=== PATIENT | male | born 1995 | race American Indian/Alaskan Native ===

== ENCOUNTER 2021-05-25 17:57 | Emergency (ER) | payer SELFPAY ==
[2021-05-25 19:44] LABS: Amphetamine Screen,Urine Negative; Benzodiazepines Screen,Urine Negative; Cocaine Screen,Urine Negative; Methadone Screen,Urine Negative; Opiate Screen,Urine Negative
[2021-05-25 19:49] LABS: Bilirubin,Urine NEG (Negative); Blood,Urine SM (Negative); Color,Urine Yellow (Yellow); Mucus,Urine FEW /HPF; Protein,Urine <15 mg/dL mg/dL (Negative)
[2021-05-25 19:55] LABS: Cannabinoid Screen,Urine Positive
[2021-05-25 20:04] LABS: Basophils % (Auto) 0.3 % (0.0-1.8); Eosinophils % (Auto) 0.1 % (0.0-4.3); Hematocrit 47.4 % (35.5-45.6); Hemoglobin 16.1 gm/dl (11.8-15.2); Lymphocytes # (Auto) 1.8 K/mm3 (1.2-5.4); Lymphocytes % (Auto) 25.1 % (13.4-35.0); Mean Corpuscular HGB Conc 34 % (32-34); Mean Corpuscular Volume 93 fl (84-94); Monocytes # (Auto) 0.4 K/mm3 (0.0-0.8); Monocytes % (Auto) 5.6 % (0.0-7.3); Platelet Count 272 K/mm3 (140-440); Red Blood Count 5.08 M/mm3 (3.65-5.03); Red Cell Distribution Width 13.4 % (13.2-15.2)
[2021-05-25 20:17] LABS: BUN/Creatinine Ratio 9; Blood Urea Nitrogen 9 mg/dL (9-20); Calcium 9.9 mg/dL (8.4-10.2); Hemolysis Index 13
[2021-05-25] MEDS ORDERED: traZODone 50 MG TAB PO ONE (20:35)
--- NOTE | 2021-05-25 20:44 | Emergency Department Report ---
ED Psych HPI - General Chief Complaint: Psych Stated Complaint: DEPRESSION Time Seen by Provider: 05/25/21 20:12 Source: patient Mode of arrival: Ambulatory - History of Present Illness Initial Comments: Chief complaint: "My medicine is not working." HPI: History obtained from patient. History also obtained from mother Sonya Castle at [phone]. This is a 26-year-old male with history of bipolar disorder diagnosed in October at [facility]. He was discovered to be manic at that time. He had attempted to steal a car from the dealership. Instead of pressing charges, under the [employer] recommended hospitalization and medical care. He required inpatient psychiatric care at [place] at that time. Mother is concerned that he will return to that same state. She explains that he has been "in a very dark space". He told his mother that he did not want a living more. He also told his mother that he did not see any purpose for living. He does not endorse any plan to harm himself. Denies homicidal ideation or auditory hallucinations. He takes risperidone 2 mg twice daily. Mother states he has not taken his medication in 3 days. MD Complaint: suicidal ideation, feels depressed, other (Trouble sleeping despi te Benadryl and Advil PM) -: Gradual, week(s) (1 week) Associated Psychiatric Symptoms: depression, suicidal ideation History of same: Yes Quality: constant Worsens With: none Context: not taking psychiatric, significant life stressor (Recently lost his job) Associated Symptoms: denies other symptoms Treatments Prior to Arrival: none If Self Harm: admits thoughts of - Related Data Home Medications Medication Instructions Recorded Confirmed Last Taken risperiDONE [RisperDAL] 2 mg PO QDAY 05/26/21 05/26/21 05/25/21 Previous Rx's Medication Instructions Recorded Last Taken Type Divalproex Dr [DepaKOTE DR] 500 mg PO BID 30 Days #60 tablet 05/26/21 Unknown Rx risperiDONE [RisperDAL] 2 mg PO BID 30 Days #60 tablet 05/26/21 Unknown Rx Allergies Allergy/AdvReac Type Severity Reaction Status Date / Time No Known Allergies Allergy Unverified 05/25/21 19:28 ED Review of Systems ROS: Stated complaint: DEPRESSION Other details as noted in HPI Comment: All other systems reviewed and negative Constitutional: denies: fever, malaise Respiratory: denies: cough, shortness of breath Cardiovascular: denies: chest pain Gastrointestinal: denies: abdominal pain, nausea, vomiting Skin: denies: rash ED Past Medical Hx - Past Medical History Previous Medical History?: Yes Hx Psychiatric Treatment: Yes (Bipolar disorder) - Surgical History Past Surgical History?: No - Social History Smoking Status: Current Every Day Smoker Substance Use Type: Marijuana - Medications Home Medications: Home Medications Medication Instructions Recorded Confirmed Last Taken Type Divalproex Dr [DepaKOTE DR] 500 mg PO BID 30 Days #60 tablet 05/26/21 Unknown Rx risperiDONE [RisperDAL] 2 mg PO BID 30 Days #60 tablet 05/26/21 Unknown Rx risperiDONE [RisperDAL] 2 mg PO QDAY 05/26/21 05/26/21 05/25/21 History ED Physical Exam - General Limitations: No Limitations General appearance: alert, in no apparent distress, other (Pleasant, cooperative, slightly anxious, fidgety) - Head Head exam: Present: atraumatic, normocephalic - Eye Eye exam: Present: normal appearance - ENT ENT exam: Present: mucous membranes moist - Neck Neck exam: Present: normal inspection, full ROM - Respiratory Respiratory exam: Present: normal lung sounds bilaterally. Absent: respiratory distress, wheezes, rales, rhonchi - Cardiovascular Cardiovascular Exam: Present: regular rate, normal rhythm, normal heart sounds. Absent: systolic murmur, diastolic murmur, rubs, gallop - GI/Abdominal GI/Abdominal exam: Present: soft, normal bowel sounds. Absent: distended, tenderness, guarding, rebound - Rectal Rectal exam: Present: deferred - Extremities Exam Extremities exam: Present: normal inspection - Back Exam Back exam: Present: normal inspection - Neurological Exam Neurological exam: Present: alert, oriented X3 - Psychiatric Psychiatric exam: Present: depressed, anxious, flat affect, suicidal ideation - Skin Skin exam: Present: warm, dry, intact, normal color. Absent: rash ED Course Vital Signs 05/25/21 05/25/21 05/25/21 19:18 20:55 22:20 Temperature 98.9 F 98.3 F Pulse Rate 99 H 92 H Respiratory 16 18 16 Rate Blood Pressure 130/85 Blood Pressure 123/86 [Right] O2 Sat by Pulse 97 97 Oximetry 05/26/21 05/26/21 02:02 08:00 Temperature 98.2 F 98.6 F Pulse Rate 122 H 89 Respiratory 18 18 Rate Blood Pressure Blood Pressure 135/87 123/87 [Right] O2 Sat by Pulse 97 99 Oximetry ED Medical Decision Making - Lab Data Result diagrams: 05/25/21 19:47 05/25/21 19:47 Laboratory Results - last 24 hr 05/25/21 05/25/21 05/25/21 19:30 19:30 19:47 WBC RBC Hgb Hct MCV MCH MCHC RDW Plt Count Lymph % (Auto) Alcorn % (Auto) Eos % (Auto) Baso % (Auto) Lymph # (Auto) Alcorn # (Auto) Eos # (Auto) Baso # (Auto) Seg Neutrophils % Seg Neutrophils # Sodium Potassium Chloride Carbon Dioxide Anion Gap BUN Creatinine Estimated GFR BUN/Creatinine Ratio Glucose Calcium Urine Color Yellow Urine Turbidity Clear Urine pH 6.0 Ur Specific Jenkins 1.013 Urine Protein <15 mg/dl Urine Glucose (UA) Neg Urine Ketones Neg Urine Blood Sm Urine Nitrite Neg Urine Bilirubin Neg Urine Urobilinogen 4.0 Ur Leukocyte Esterase Tr Urine WBC (Auto) 4.0 Urine RBC (Auto) 7.0 Urine Mucus Few Salicylates < 0.3 L Urine Opiates Screen Negative Urine Methadone Screen Negative Acetaminophen Ur Barbiturates Screen Negative Ur Phencyclidine Scrn Negative Ur Amphetamines Screen Negative U Benzodiazepines Scrn Negative Urine Cocaine Screen Negative U Marijuana (THC) Screen Positive Drugs of Abuse Note Disclamer Plasma/Serum Alcohol 05/25/21 05/25/21 05/25/21 19:47 19:47 19:47 WBC RBC Hgb Hct MCV MCH MCHC RDW Plt Count Lymph % (Auto) Alcorn % (Auto) Eos % (Auto) Baso % (Auto) Lymph # (Auto) Alcorn # (Auto) Eos # (Auto) Baso # (Auto) Seg Neutrophils % Seg Neutrophils # Sodium 142 Potassium 3.6 Chloride 102.6 Carbon Dioxide 22 Anion Gap 21 BUN 9 Creatinine 1.0 Estimated GFR > 60 BUN/Creatinine Ratio 9 Glucose 91 Calcium 9.9 Urine Color Urine Turbidity Urine pH Ur Specific Jenkins Urine Protein Urine Glucose (UA) Urine Ketones Urine Blood Urine Nitrite Urine Bilirubin Urine Urobilinogen Ur Leukocyte Esterase Urine WBC (Auto) Urine RBC (Auto) Urine Mucus Salicylates Urine Opiates Screen Urine Methadone Screen Acetaminophen 5.0 L Ur Barbiturates Screen Ur Phencyclidine Scrn Ur Amphetamines Screen U Benzodiazepines Scrn Urine Cocaine Screen U Marijuana (THC) Screen Drugs of Abuse Note Plasma/Serum Alcohol 0.08 H 05/25/21 19:47 WBC 7.2 RBC 5.08 H Hgb 16.1 H Hct 47.4 H MCV 93 MCH 32 MCHC 34 RDW 13.4 Plt Count 272 Lymph % (Auto) 25.1 Alcorn % (Auto) 5.6 Eos % (Auto) 0.1 Baso % (Auto) 0.3 Lymph # (Auto) 1.8 Alcorn # (Auto) 0.4 Eos # (Auto) 0.0 Baso # (Auto) 0.0 Seg Neutrophils % 68.9 Seg Neutrophils # 4.9 Sodium Potassium Chloride Carbon Dioxide Anion Gap BUN Creatinine Estimated GFR BUN/Creatinine Ratio Glucose Calcium Urine Color Urine Turbidity Urine pH Ur Specific Jenkins Urine Protein Urine Glucose (UA) Urine Ketones Urine Blood Urine Nitrite Urine Bilirubin Urine Urobilinogen Ur Leukocyte Esterase Urine WBC (Auto) Urine RBC (Auto) Urine Mucus Salicylates Urine Opiates Screen Urine Methadone Screen Acetaminophen Ur Barbiturates Screen Ur Phencyclidine Scrn Ur Amphetamines Screen U Benzodiazepines Scrn Urine Cocaine Screen U Marijuana (THC) Screen Drugs of Abuse Note Plasma/Serum Alcohol - Medical Decision Making Acute depression, suicidal ideation, history of bipolar disorder: Patient is medically clear for psychiatric care. I have reviewed labs. Blood alcohol level 0.08. UDS positive marijuana. I have ordered home medication risperidone 2 mg twice daily. Awaiting treatment recommendations by mental health team. Critical care attestation.: If time is entered above; I have spent that time in minutes in the direct care of this critically ill patient, excluding procedure time. ED Disposition Clinical Impression: Acute depression, Suicidal ideation, Bipolar disorder Disposition: DC-01 TO HOME OR SELFCARE Is pt being admited?: No Does the pt Need Aspirin: No Condition: Stable Instructions: Major Depressive Disorder, Adult Prescriptions: Divalproex Dr [DepaKOTE DR] 500 mg PO BID 30 Days #60 tablet risperiDONE [RisperDAL] 2 mg PO BID 30 Days #60 tablet Referrals: PRIMARY CARE, [Primary Care Provider] - 3-5 Days
[2021-05-25] MEDS: risperiDONE 1 MG TAB PO SCH (22:22)
[2021-05-26 09:08] VITALS: BP 123/87
[2021-05-26] MEDS: risperiDONE 1 MG TAB PO SCH (10:06)
--- NOTE | 2021-05-26 10:36 | Consultation ---
History of Present Illness - Reason for Consult Consult date: 05/26/21 Reason for consult: Bipolar - History of Present Psychiatric Illness Per Ed Note: This is a 26-year-old male with history of bipolar disorder diagnosed in October at [facility]. He was discovered to be manic at that time. He had attempted to steal a car from the dealership. Instead of pressing charges, under the dealership recommended hospitalization and medical care. He required inpatient psychiatric care at [place] at that time. Mother is concerned that he will return to that same state. She explains that he has been "in a very dark space". He told his mother that he did not want a living more. He also told his mother that he did not see any purpose for living. He does not endorse any plan to harm himself. Denies homicidal ideation or auditory hallucinations. He takes risperidone 2 mg twice daily. Mother states he has not taken his medication in 3 days. Fili Castle is a 26 year old male with a history of Schizophrenia and Bipolar disorder with prior psychiatric inpatient admission, who presents to the Ed for increasing depression. In my interview with the patient, He reports that " I am really depressed, I worry about things and my future." The patient reports that he feels depressed most of the time. The patient also endorses having anxiety.The patient reports that he sees a psychiatrist at [facility] but states he does not feel like his medication is working for him. The patient is currently on Risperidone 2 mg po BID however, medication compliance is unknown. The patient denies any current suicidal/ homicidal ideation and denies hallucinations. PAST PSYCHIATRIC HISTORY: Diagnoses: Schizophrenia, Bipolar Suicide attempts or Self-harm behavior: Denies Prior psychiatric hospitalizations: Yes Substance Abuse history: Marijuana Previous psychiatric medications tried: Risperidone Outpatient treatment: yes PAST MEDICAL HISTORY: None reported or document Family Psychiatric History: None reported or documented SOCIAL HISTORY Marital Status: Single Living Arrangements: lives with mother Employment Status:Unemployed Access to guns/weapons: Denies Education: [employer] History of Abuse: Denies Legal History: Denies REVIEW OF SYSTEMS Constitutional: Negative for weight loss ENT: Negative for stridor Respiratory: Negative for cough or hemoptysis All other systems reviewed and are negative MENTAL STATUS EXAMINATION General Appearance and Behavior: Age appropriate, wearing appropriate clothes, cooperative, polite with questioning, fair eye contact, calm Cooperation: cooperative Psychomotor Behavior: Psychomotor normal Mood: "Depressed" Affect and affective range: congruent with stated mood Thought Process: goal directed Thought Content: Not SI Speech: Normal volume, Regular rate and rhythm Suicidal Ideation: Denies Homicidal Ideation: Denies Hallucination: Denies Delusions: None elicited Impulse Control: Intact Insight and Judgment: Limited Memory: Intact Attention: attentive, engaging Orientation: Alert and oriented Diagnoses: Bipolar Disorder, Current Episode Depressed, Moderate- F31.32 Treatment Plan Continue Home med- Risperidone 2mg po BID Start Depakote 500mg po BID PSYCHOTHERAPY: Supportive psychotherapy provided MEDICAL: Per primary team DELIRIUM PRECAUTIONS: Please re-orient patient frequently, keep lights on during the day, and minimize benzodiazepines and opiates as these medications could worsen patient's confusion. [employer] DES[employer]INEER: Per medical team DISPOSITION: Do not recommend acute psychiatric inpatient treatment Will sign off. The patient should be compliant with medications, not to use drugs and not to drink alcohol. The patient understands that if suicidal ideas, homicidal ideas or any endangering thoughts/behavior should arise, they should immediately seek for emergent assistance including but not limited to crisis hot line and emergency room. Follow up with outpatient psychiatry and PCP within 7- 14 day post discharge. Please contact with any questions and/or concerns. Case staffed with Dr. Awad Thank you for the consult. Medications and Allergies Allergies Allergy/AdvReac Type Severity Reaction Status Date / Time No Known Allergies Allergy Unverified 05/25/21 19:28 Home Medications Medication Instructions Recorded Confirmed Last Taken Type Divalproex Dr [DepaKOTE DR] 500 mg PO BID 30 Days #60 tablet 05/26/21 Unknown Rx risperiDONE [RisperDAL] 2 mg PO BID 30 Days #60 tablet 05/26/21 Unknown Rx risperiDONE [RisperDAL] 2 mg PO QDAY 05/26/21 05/26/21 05/25/21 History Active Meds: Active Medications Risperidone (Risperidone 1 Mg Tab) 2 mg PO BID TIFFANIE Last Admin: 05/26/21 10:06 Dose: 2 mg Documented by: Mental Status Exam - Vital signs Last Vital Signs Temp 98.6 F 05/26/21 08:00 Pulse 89 05/26/21 08:00 Resp 18 05/26/21 08:00 BP 123/87 05/26/21 08:00 Pulse Ox 99 05/26/21 08:00 Results Result Diagrams: 05/25/21 19:47 05/25/21 19:47 Abnormal lab results 05/25/21 05/25/21 05/25/21 Range/Units 19:47 19:47 19:47 RBC (3.65-5.03) M/mm3 Hgb (11.8-15.2) gm/dl Hct (35.5-45.6) % Salicylates < 0.3 L (2.8-20.0) mg/dL Acetaminophen 5.0 L (10.0-30.0) ug/mL Plasma/Serum Alcohol 0.08 H (0-0.07) % 05/25/21 Range/Units 19:47 RBC 5.08 H (3.65-5.03) M/mm3 Hgb 16.1 H (11.8-15.2) gm/dl Hct 47.4 H (35.5-45.6) % Salicylates (2.8-20.0) mg/dL Acetaminophen (10.0-30.0) ug/mL Plasma/Serum Alcohol (0-0.07) % All other labs normal.
--- NOTE | 2021-05-26 11:55 | Event Note ---
Date: 05/26/21 Patient seen, evaluated, and cleared by psychiatry team. Inpatient placement is no longer recommended. Patient will be discharged home with prescriptions. Outpatient follow-up advised, return precautions given.
== END 2021-05-26 13:29 | disposition home or self-care (01) ==
LOC: ED 17:57
DX: F32.9 Major depressive disorder, single episode, unspecified (principal); Z20.822 Contact with and (suspected) exposure to COVID-19; R45.851 Suicidal ideations; F17.200 Nicotine dependence, unspecified, uncomplicated; F12.90 Cannabis use, unspecified, uncomplicated; Z79.899 Other long term (current) drug therapy
CPT/HCPCS: 36415; 80048; 80307; 81001; 85025; 99284; U0003; 80320; G0480

== ENCOUNTER 2022-01-25 06:11 | Emergency (ER) | payer SELFPAY ==
[2022-01-25] MEDS ORDERED: IBUPROFEN 600 MG TAB PO ONE (06:31)
[2022-01-25] MEDS ORDERED: ACETAMINOPHEN 500 MG TAB PO STA (06:31)
[2022-01-25 06:35] VITALS: BP 115/72
--- NOTE | 2022-01-25 06:49 | Emergency Department Report ---
ED General Adult HPI - General Stated complaint: FOOT PAIN Time Seen by Provider: 01/25/22 06:30 - History of Present Illness Initial comments: 26-year-old -[place] male patient presents via EMS for bilateral foot pain x3 months. Patient states that his foot pain began a couple of weeks after walking daily. Patient states he has been walking on his feet daily since and that his pain has been worsening. He denies any numbness/tingling or weakness in his feet, IV drug use, past medical history, or fever/chills/sweats. Patient rates his pain as 8/10 in severity. He denies trying any OTC medication for symptoms. Patient states he was also seen at an ER in [place] yesterday. Patient states he requested opiates for his pain and they denied him, so he came to this ED today. - Related Data Home Medications Medication Instructions Recorded Confirmed Last Taken risperiDONE [RisperDAL] 2 mg PO QDAY 05/26/21 05/26/21 05/25/21 Previous Rx's Medication Instructions Recorded Last Taken Type Divalproex Dr [Tatiana FLOWERS] 500 mg PO BID 30 Days #60 tablet 05/26/21 Unknown Rx risperiDONE [RisperDAL] 2 mg PO BID 30 Days #60 tablet 05/26/21 Unknown Rx Clotrimazole 1% [Lotrimin] 1 applic TP BID 14 Days #1 tube 01/25/22 Unknown Rx Mupirocin [Bactroban 2% OINT] 1 applic TP TID 10 Days #1 tube 01/25/22 Unknown Rx Naproxen [Naprosyn TAB] 500 mg PO BID PRN #30 tablet 01/25/22 Unknown Rx Allergies Allergy/AdvReac Type Severity Reaction Status Date / Time No Known Allergies Allergy Verified 01/25/22 06:35 ED Review of Systems ROS: Stated complaint: FOOT PAIN Other details as noted in HPI Constitutional: denies: chills, diaphoresis, fever, malaise, weakness Cardiovascular: denies: chest pain Musculoskeletal: arthralgia. denies: joint swelling Skin: denies: rash Neurological: denies: numbness, paresthesias, abnormal gait ED Past Medical Hx - Past Medical History Hx Psychiatric Treatment: Yes (Bipolar disorder) - Social History Smoking Status: Current Every Day Smoker Substance Use Type: Marijuana - Medications Home Medications: Home Medications Medication Instructions Recorded Confirmed Last Taken Type Divalproex Dr [DepaKOTE DR] 500 mg PO BID 30 Days #60 tablet 05/26/21 Unknown Rx risperiDONE [RisperDAL] 2 mg PO BID 30 Days #60 tablet 05/26/21 Unknown Rx risperiDONE [RisperDAL] 2 mg PO QDAY 05/26/21 05/26/21 05/25/21 History Clotrimazole 1% [Lotrimin] 1 applic TP BID 14 Days #1 tube 01/25/22 Unknown Rx Mupirocin [Bactroban 2% OINT] 1 applic TP TID 10 Days #1 tube 01/25/22 Unknown Rx Naproxen [Naprosyn TAB] 500 mg PO BID PRN #30 tablet 01/25/22 Unknown Rx ED Physical Exam - General General appearance: alert, in no apparent distress - Head Head exam: Present: atraumatic, normocephalic - Respiratory Respiratory exam: Absent: respiratory distress - Cardiovascular Cardiovascular Exam: Present: regular rate - Extremities Exam Extremities exam: Present: full ROM, other (Tenderness to palpation noted bilaterally to the heels feet; there are scattered ruptured blisters without drainage or cellulitic changes noted; tinea pedis noted bilaterally between all 5 digits of the toes; pedal pulse normal bilaterally) - Expanded Lower Extremity Exam Right Foot/Toe exam: Present: full ROM Neuro vascular tendon exam: Present: no vascular compromise. Absent: pulse deficit, motor deficit, sensory deficit Left Neuro vascular tendon exam: Absent: no vascular compromise, pulse deficit, abnormal cap refill, motor deficit, sensory deficit - Neurological Exam Neurological exam: Present: alert, oriented X3 - Psychiatric Psychiatric exam: Present: normal affect, normal mood - Skin Skin exam: Present: warm, dry, intact. Absent: rash, petechiae, pallor, ecchymosis ED Course Vital Signs 01/25/22 06:33 Temperature 98.1 F Pulse Rate 81 Respiratory 18 Rate Blood Pressure 115/72 [Left] O2 Sat by Pulse 100 Oximetry ED Medical Decision Making - Medical Decision Making 26-year-old -[place] male patient presents via EMS for bilateral foot pain x3 months. Patient states that his foot pain began a couple of weeks after walking daily. Patient states he has been walking on his feet daily since and that his pain has been worsening. He denies any numbness/tingling or weakness in his feet, IV drug use, past medical history, or fever/chills/sweats. Patient rates his pain as 8/10 in severity. He denies trying any OTC medication for symptoms. Patient states he was also seen at an ER in [place] yesterday. Patient states he requested opiates for his pain and they denied him, so he came to this ED today. No acute bony abnormalities noted on exam or signs of cellulitis. Will treat with NSAIDs and rest for now. Lotrimin given for tinea pedis. Recommend follow-up with primary care in 3 to 5 days, referral provided. Patient also informed he may follow-up with podiatry, referral provided again. He is otherwise well-appearing, his vitals within normal is, he is stable for discharge home. Strict return precautions discussed in detail patient verbaliz es understanding Critical care attestation.: If time is entered above; I have spent that time in minutes in the direct care of this critically ill patient, excluding procedure time. ED Disposition Clinical Impression: Bilateral foot pain Disposition: 01 HOME / SELF CARE / HOMELESS Is pt being admited?: No Condition: Stable Instructions: Reactive Arthritis, Foot Pain Prescriptions: Mupirocin [Bactroban 2% OINT] 1 applic TP TID 10 Days #1 tube Clotrimazole 1% [Lotrimin] 1 applic TP BID 14 Days #1 tube Naproxen [Naprosyn TAB] 500 mg PO BID PRN #30 tablet PRN Reason: pain Referrals: [facility] [Provider Group] - 3-5 Days DC LYNCH MD [Staff Physician] - 3-5 Days
== END 2022-01-25 09:47 | disposition home or self-care (01) ==
LOC: ED 06:11
DX: M79.671 Pain in right foot (principal); M79.672 Pain in left foot; F31.9 Bipolar disorder, unspecified; F12.90 Cannabis use, unspecified, uncomplicated; F17.200 Nicotine dependence, unspecified, uncomplicated; Z79.899 Other long term (current) drug therapy
CPT/HCPCS: 99283